=== PATIENT | female | born 1965 | race Hispanic/Latino ===

== ENCOUNTER 2016-11-24 18:22 | Observation (INO) | payer MEDICARE ==
[2016-11-24] MEDS ORDERED: Oxycodone/Acetaminophen 5/325 mg Tab ONE ×2 (19:50→21:48)
[2016-11-24 19:57] LABS: BASO # 0.1 K/uL (0.0-0.2); BASO % 0.8 % (0.0-2.0); EOS # 0.2 K/uL (0.0-0.7); LYMPH # 2.5 K/uL (1.0-4.3); LYMPH % 21.2 % (20.0-40.0); MEAN CORPUSCULAR HEMOGLOBIN 28.9 pg (27.0-31.0); MEAN CORPUSCULAR HGB CONC 33.6 g/dL (33.0-37.0); MEAN PLATELET VOLUME 7.1 fl (7.2-11.7); MONO # 0.7 K/uL (0.0-0.8); MONO % 6.1 % (0.0-10.0); NEUT # 8.2 K/uL (1.8-7.0); NEUT % 69.9 % (50.0-75.0); NRBC % 0.1 % (0.0-0.0); WHITE BLOOD COUNT 11.7 K/uL (4.8-10.8)
[2016-11-24] MEDS: Oxycodone/Acetaminophen 5/325 mg Tab PO ONE ×2 (19:57→21:57)
--- NOTE | 2016-11-24 20:01 | ED PDOC ---
HPI: Chest Pain Time Seen by Provider: 11/24/16 19:12 Chief Complaint (Nursing): Chest Pain Chief Complaint (Provider): Chest Pain History Per: Patient History/Exam Limitations: no limitations Onset/Duration Of Symptoms: Days (since yesterday) Current Symptoms Are (Timing): Still Present Severity: Moderate Quality: Other (left-sided, as if she is being shocked by her pacemaker; non- exertional/non-radiating) Associated Symptoms: denies: Dyspnea, Other (no vomiting) Additional Complaint(s): Carmel Calderón is a 51 year old female, with a past medical history of HTN, COPD and type II diabetes, who presents to the ED on 11/24/16 for the evaluation of moderate, left-sided chest pain that she has experienced since yesterday. Pain is localized around the site of her implanted pacemaker, which patient states had been placed secondary to her "very bad sleep apnea". Patient states that it feels as if the device is "shocking her", and though it has been keeping it up at night it is non-exertional and non-radiating. Denies shortness of breath or vomiting. Of note, patient reports having been recently admitted to [facility] for chest pain, though she had been told upon further observation that nothing was wrong. She also reports that they had only been giving her Tylenol during her hospital stay, but that it had provided no relief as she usually takes Percocet or Dilaudid. PMD: Dr. oPrtillo Past Medical History Reviewed: Historical Data, Nursing Documentation, Vital Signs Vital Signs: Last Vital Signs Temp 97.9 F 11/24/16 22:17 Pulse 77 11/24/16 22:17 Resp 16 11/24/16 22:17 BP 116/74 11/24/16 22:17 Pulse Ox 98 11/24/16 22:16 - Medical History PMH: Arthritis, COPD, Diabetes (type II), Fibromyalgia, Sleep Apnea - Family History Family History: States: Unknown Family Hx - Social History Current smoker - smoking cessation education provided: Yes (heavy smoker (>10 cigarettes/day)) Alcohol: None Drugs: Denies - Allergies Allergies/Adverse Reactions: Allergies Allergy/AdvReac Type Severity Reaction Status Date / Time No Known Allergies Allergy Verified 11/24/16 18:39 Review of Systems ROS Statement: Except As Marked, All Systems Reviewed And Found Negative Cardiovascular: Positive for: Chest Pain (left-sided around site of pacemaker) Respiratory: Negative for: Shortness of Breath Gastrointestinal: Negative for: Vomiting Physical Exam - Reviewed Nursing Documentation Reviewed: Yes Vital Signs Reviewed: Yes - Physical Exam Appears: Positive for: Non-toxic, No Acute Distress (obese, disheveled) Head Exam: Positive for: ATRAUMATIC, NORMOCEPHALIC Skin: Positive for: Normal Color, Warm, Dry Eye Exam: Positive for: Normal appearance, PERRL ENT: Positive for: Normal ENT Inspection Neck: Positive for: Normal, Painless ROM, Supple Cardiovascular/Chest: Positive for: Regular Rate, Rhythm, Other (pacemaker noted within left chest wall, tender to palpation though there is no surrounding swelling/erythema). Negative for: Murmur Respiratory: Positive for: Normal Breath Sounds. Negative for: Respiratory Distress Gastrointestinal/Abdominal: Positive for: Normal Exam, Soft. Negative for: Tenderness Back: Positive for: Normal Inspection Extremity: Positive for: Normal ROM Neurologic/Psych: Positive for: Alert, Oriented - Laboratory Results Result Diagrams: 11/24/16 19:30 11/24/16 19:50 - ECG O2 Sat by Pulse Oximetry: 97 (RA) Pulse Ox Interpretation: Normal - Radiology X-Ray: Interpreted by Me, Viewed By Me X-Ray Interpretation: No Acute Disease Medical Decision Making Medical Decision Makin:12 Initial Impression: chest pain; r/o ACS Initial Plan: * CXR * Labs * BNP * Troponin I * PTT * PT * Percocet 1 tab PO * Reevaluation CXR shows no acute disease as read by me. 21:21 Labs reviewed, troponin and BNP are negative. Discussed case with Dr. Zhong (Medical Service customer operations intern), patient will be hospitalized under his service for chest pain observation. Plan has been discussed with patient, who is in agreement. 21:37 Patient complaining of persistent pain, will order additional Percocet 1 tab PO. Scribe Attestation: Documented by Chelsea Alejandro, acting as a scribe for Nnamdi Cosme MD. Provider Scribe Attestation: All medical record entries made by the Scribe were at my direction and personally dictated by me. I have reviewed the chart and agree that the record accurately reflects my personal performance of the history, physical exam, medical decision making, and the department course for this patient. I have also personally directed, reviewed, and agree with the discharge instructions and disposition. Disposition - Clinical Impression Clinical Impression: Chest pain - Patient ED Disposition Is Patient to be Admitted: Yes - Disposition Disposition Time: 21:21 Condition: STABLE - Pt Status Changed To: Hospital Disposition Of: Observation
[2016-11-24 20:15] LABS: BLOOD UREA NITROGEN 18 mg/dl (7-17); CALCIUM 9.8 mg/dL (8.4-10.2); CARBON DIOXIDE 23 mmol/L (22-30); CHLORIDE 103 mmol/L (98-107); GFR AFRICAN-AMERICAN > 60; GLUCOSE,RANDOM 234 mg/dL (65-105); POTASSIUM 4.4 MMOL/L (3.6-5.0); SODIUM 143 mmol/l (132-148)
[2016-11-24 20:46] LABS: PARTIAL THROMBOPLASTIN TIME 27.8 SECONDS (23.3-32.5)
[2016-11-24] MEDS ORDERED: Oxycodone/Acetaminophen 5/325 mg Tab PO ONE (21:37)
[2016-11-25 00:44] VITALS: RESP 20
[2016-11-25 05:28] VITALS: O2SAT 96
[2016-11-25] MEDS ORDERED: Pneumococcal 23-Valent Vaccine IM ONE (06:00)
[2016-11-25 06:51] LABS: HEMATOCRIT 40.7 % (34.0-47.0); MEAN CELL VOLUME 85.1 fl (81.0-99.0); MEAN CORPUSCULAR HGB CONC 34.1 g/dL (33.0-37.0); RED CELL DISTRIBUTION WIDTH 13.9 % (11.5-14.5); WHITE BLOOD COUNT 9.9 K/uL (4.8-10.8)
[2016-11-25] MEDS ORDERED: Insulin Regular 100 units/ml SC SCH (07:00)
[2016-11-25 07:05] LABS: ALKALINE PHOSPHATASE 123 U/L (38-126); ALT/SGPT 19 U/L (9-52); AST/SGOT 14 U/L (14-36); BILIRUBIN,TOTAL 0.8 mg/dl (0.2-1.3); BLOOD UREA NITROGEN 15 mg/dl (7-17); CALCIUM 9.3 mg/dL (8.4-10.2); CARBON DIOXIDE 24 mmol/L (22-30); CHLORIDE 104 mmol/L (98-107); CHOLESTEROL 209 mg/dL (0-199); GFR AFRICAN-AMERICAN > 60; GLUCOSE,RANDOM 181 mg/dL (65-105); POTASSIUM 3.6 MMOL/L (3.6-5.0); SODIUM 142 mmol/l (132-148); TOTAL PROTEIN 7.3 G/DL (6.3-8.2)
--- NOTE | 2016-11-25 07:10 | CP.PCM.CON ---
History of Present Illness - History of Present Illness History of Present Illness: 51 year old female, with a past medical history of HTN, COPD and type II diabetes, who presents to the ED on 11/24/16 for the evaluation of moderate, left-sided chest pain that she has experienced since yesterday. Pain is at the site of her implanted pacemaker. She claims the pacemaker is "FLIPPING" !! Denies shortness of breath or vomiting. Of note, patient reports having been recently admitted to [facility] for chest pain, though she had been told upon further observation that nothing was wrong. She also reports that they had only been giving her Tylenol during her hospital stay, but that it had provided no relief as she usually takes Percocet or Dilaudid. Requesting Dilaud or Percocet-- ??drug seeking?? Troponin: neg EKG: normal Past Patient History - Past Medical History & Family History Past Medical History?: Yes - Past Social History Smoking Status: Heavy Smoker > 10 Cigarettes Daily - CARDIAC Hx Cardiac Disorders: Yes Hx Hypertension: Yes Hx Pacemaker: Yes - PULMONARY Hx Respiratory Disorders: Yes Hx Chronic Obstructive Pulmonary Disease (COPD): Yes Hx Sleep Apnea: Yes - NEUROLOGICAL Hx Neurological Disorder: No - HEENT Hx HEENT Problems: No - RENAL Hx Chronic Kidney Disease: No - ENDOCRINE/METABOLIC Hx Endocrine Disorders: Yes Hx Diabetes Mellitus Type 2: Yes - HEMATOLOGICAL/ONCOLOGICAL Hx Blood Disorders: No - INTEGUMENTARY Hx Dermatological Problems: No - MUSCULOSKELETAL/RHEUMATOLOGICAL Hx Musculoskeletal Disorders: Yes Hx Arthritis: Yes Hx Falls: No - GASTROINTESTINAL Hx Gastrointestinal Disorders: No - GENITOURINARY/GYNECOLOGICAL Hx Genitourinary Disorders: No - PSYCHIATRIC Hx Psychophysiologic Disorder: No Hx Substance Use: No - SURGICAL HISTORY Hx Surgeries: Yes Hx Section: Yes Hx Tubal Ligation: Yes Other/Comment: Pacemaker, Right carpal tunnel Sx - ANESTHESIA Hx Anesthesia: Yes Hx Anesthesia Reactions: No Hx Malignant Hyperthermia: No Meds Allergies/Adverse Reactions: Allergies Allergy/AdvReac Type Severity Reaction Status Date / Time No Known Allergies Allergy Verified 11/24/16 18:39 - Medications Medications: Current Medications Aspirin (Ecotrin) 81 mg PO DAILY MESFIN Insulin Human Regular (Humulin R) 0 units SC ACCU-CHECK MESFIN PRN Reason: Protocol Last Admin: 11/25/16 06:32 Dose: 1 unit Tramadol HCl (Ultram) 50 mg PO BID PRN PRN Reason: Pain, moderate (4-7) Physical Exam - Cardiovascular Exam Cardiovascular Exam: REGULAR RHYTHM Additional comments: chest wall above the pacemaker is tender to the touch Results - Vital Signs Recent Vital Signs: Last Vital Signs Temp 98 F 11/25/16 05:27 Pulse 95 H 11/25/16 05:27 Resp 20 11/25/16 05:27 BP 148/74 11/25/16 05:27 Pulse Ox 96 11/25/16 05:27 - Labs Result Diagrams: 11/25/16 04:45 11/25/16 04:45 Labs: Laboratory Results - last 24 hr 11/24/16 11/25/16 22:58 05:05 POC Glucose (mg/dL) 231 H 172 H Assessment & Plan - Assessment and Plan (Free Text) Assessment: area above the site of her pacemaker is tender pt can be discharged I have advised her to f/u with her scallop binder who inserted the pacemaker
--- NOTE | 2016-11-25 08:48 | RAD ---
PROCEDURE: CHEST RADIOGRAPH, 1 VIEW. Portable study 19:39. HISTORY: chest pain COMPARISON: None available. FINDINGS: LUNGS: Clear. PLEURA: No pneumothorax or pleural fluid seen. CARDIOVASCULAR: No radiographic findings to suggest acute or significant cardiovascular disease. Position/ configuration of pacemaker device: Satisfactory. OSSEOUS STRUCTURES: No significant abnormalities. VISUALIZED UPPER ABDOMEN: Normal. OTHER FINDINGS: None. IMPRESSION: No active disease.
--- NOTE | 2016-11-25 10:19 | CP.PCM.HP ---
History of Present Illness - History of Present Illness History of Present Illness: 51F admitted overnight and seen this morning with attending. Pt says she came in with a "panic attack" because she's homeless. She said she had some chest pain associated diaphoresis and SOB but denies nausea or radiating into extremity or neck. She reports still being very anxious because she has no place to live and does not think her medications are covered by her insurance. She denies any N/V/diarrhea/fever/chills. Currently denies any suicidal ideation. PMH: DM/HTN/Fibromyalgia/Bipolar (last admission 04/2016)/Anxiety, DVT, Menopause, Renal Abscess PSH: C-sxn x1, b/l tubal ligation, RIGHT carpal tunnel release, AICD (for "not breathing" @ [facility] in [place], [place]) ED COURSE VS: 36.4- 104- 152/99- 16- 97% Trop/BNP-negative CXR- no acute disease Present on Admission - Present on Admission Any Indicators Present on Admission: Yes History of DVT/PE: Yes History of Uncontrolled Diabetes: Yes Review of Systems - Review of Systems Review of Systems: As per HPI Past Patient History - Past Medical History & Family History Past Medical History?: Yes - Past Social History Smoking Status: Heavy Smoker > 10 Cigarettes Daily - CARDIAC Hx Cardiac Disorders: Yes Hx Hypertension: Yes Hx Pacemaker: Yes - PULMONARY Hx Respiratory Disorders: Yes Hx Chronic Obstructive Pulmonary Disease (COPD): Yes Hx Sleep Apnea: Yes - NEUROLOGICAL Hx Neurological Disorder: No - HEENT Hx HEENT Problems: No - RENAL Hx Chronic Kidney Disease: No - ENDOCRINE/METABOLIC Hx Endocrine Disorders: Yes Hx Diabetes Mellitus Type 2: Yes - HEMATOLOGICAL/ONCOLOGICAL Hx Blood Disorders: No - INTEGUMENTARY Hx Dermatological Problems: No - MUSCULOSKELETAL/RHEUMATOLOGICAL Hx Musculoskeletal Disorders: Yes Hx Arthritis: Yes Hx Falls: No - GASTROINTESTINAL Hx Gastrointestinal Disorders: No - GENITOURINARY/GYNECOLOGICAL Hx Genitourinary Disorders: No - PSYCHIATRIC Hx Psychophysiologic Disorder: No Hx Substance Use: No - SURGICAL HISTORY Hx Surgeries: Yes Hx Section: Yes Hx Tubal Ligation: Yes Other/Comment: Pacemaker, Right carpal tunnel Sx - ANESTHESIA Hx Anesthesia: Yes Hx Anesthesia Reactions: No Hx Malignant Hyperthermia: No Meds Home Medications: Home Medication List Medication Instructions Recorded Confirmed Type Lisinopril [Prinivil] 10 mg PO DAILY #30 tab 04/19/17 Rx metFORMIN [glucOPHAGE] 500 mg PO BID #60 tab 11/25/16 Rx Allergies/Adverse Reactions: Allergies Allergy/AdvReac Type Severity Reaction Status Date / Time No Known Allergies Allergy Verified 11/24/16 18:39 Physical Exam - Constitutional Appears: Well, Non-toxic, No Acute Distress - Head Exam Head Exam: ATRAUMATIC, NORMAL INSPECTION - Eye Exam Eye Exam: EOMI, Normal appearance - ENT Exam ENT Exam: Mucous Membranes Moist, Normal Exam - Respiratory Exam Respiratory Exam: Clear to Auscultation Bilateral, NORMAL BREATHING PATTERN. absent: Rales, Wheezes - Cardiovascular Exam Cardiovascular Exam: REGULAR RHYTHM (AICD pocket non-erythematous, but ttp). absent: JVD - GI/Abdominal Exam GI & Abdominal Exam: Normal Bowel Sounds, Soft (obese). absent: Tenderness - Extremities Exam Extremities exam: Positive for: normal capillary refill, pedal pulses present. Negative for: pedal edema - Neurological Exam Neurological exam: Alert, Oriented x3 - Psychiatric Exam Psychiatric exam: Anxious, Normal Mood - Skin Skin Exam: Normal Color, Warm Results - Vital Signs Recent Vital Signs: Last Vital Signs Temp 36.6 C 11/25/16 08:31 Pulse 81 11/25/16 08:31 Resp 20 11/25/16 08:31 BP 139/90 11/25/16 08:31 Pulse Ox 96 11/25/16 08:31 - Labs Result Diagrams: 11/25/16 04:45 11/25/16 04:45 Labs: Laboratory Results - last 24 hr 11/24/16 11/25/16 11/25/16 22:58 04:45 05:05 WBC 9.9 RBC 4.78 Hgb 13.9 Hct 40.7 MCV 85.1 MCH 29.0 MCHC 34.1 RDW 13.9 Plt Count 293 Sodium 142 Potassium 3.6 Chloride 104 Carbon Dioxide 24 Anion Gap 18 BUN 15 Creatinine 0.5 L Est GFR ( Amer) > 60 Est GFR (Non-Af Amer) > 60 POC Glucose (mg/dL) 231 H 172 H Random Glucose 181 H Calcium 9.3 Total Bilirubin 0.8 AST 14 ALT 19 Alkaline Phosphatase 123 Troponin I < 0.0120 Total Protein 7.3 Albumin 3.6 Globulin 3.7 Albumin/Globulin Ratio 1.0 Triglycerides 162 H Cholesterol 209 H LDL Cholesterol Direct 159 H HDL Cholesterol 32 Assessment & Plan - Assessment and Plan (Free Text) Assessment: 51F p/w multiple co-morbidities, off of her medication, and chest pain due to anxiety/panic attack. Plan: - Admit for obs - DM: Metformin 500mg, BIDWM - HTN: Lisinopril 10mg, PO, Daily - CAD: Aspiring 81mg, PO, Daily - f/u ACS labs - d/c if workup negative and discussed with Dr Leonardo
[2016-11-25 13:14] VITALS: BP 159/94; PULSE 97; TEMP 97.6
--- NOTE | 2016-11-25 13:39 | CP.PCM.DIS ---
Provider - Provider Date of Admission: 11/24/16 21:21 Attending physician: Luis Zhong MD Primary care physician: Rae Portillo MD Time Spent in preparation of Discharge (in minutes): 30 Diagnosis - Discharge Diagnosis (1) Chest pain Status: Acute Comment: Troponins negative x3, symptoms most c/w anxiety-related. Evaluated by Dr Leonardo who has cleared her for discharge to follow up with cradiologist that placed AICD. (2) Diabetes Status: Acute Comment: Not on medications, will discharge on Metformin. (3) Hypertension Status: Acute Comment: Not on medications, will discharge on ACEI given co-existing DM. Hospital Course - Lab Results Lab Results: Most Recent Lab Values WBC 9.9 K/uL (4.8-10.8) 11/25/16 04:45 RBC 4.78 Mil/uL (3.80-5.20) 11/25/16 04:45 Hgb 13.9 g/dL (12.0-16.0) 11/25/16 04:45 Hct 40.7 % (34.0-47.0) 11/25/16 04:45 MCV 85.1 fl (81.0-99.0) 11/25/16 04:45 MCH 29.0 pg (27.0-31.0) 11/25/16 04:45 MCHC 34.1 g/dL (33.0-37.0) 11/25/16 04:45 RDW 13.9 % (11.5-14.5) 11/25/16 04:45 Plt Count 293 K/uL (130-400) 11/25/16 04:45 MPV 7.1 fl (7.2-11.7) L 11/24/16 19:30 Neut % (Auto) 69.9 % (50.0-75.0) 11/24/16 19:30 Lymph % (Auto) 21.2 % (20.0-40.0) 11/24/16 19:30 Stark % (Auto) 6.1 % (0.0-10.0) 11/24/16 19:30 Eos % (Auto) 2.0 % (0.0-4.0) 11/24/16 19:30 Baso % (Auto) 0.8 % (0.0-2.0) 11/24/16 19:30 Neut # 8.2 K/uL (1.8-7.0) H 11/24/16 19:30 Lymph # 2.5 K/uL (1.0-4.3) 11/24/16 19:30 Stark # 0.7 K/uL (0.0-0.8) 11/24/16 19:30 Eos # 0.2 K/uL (0.0-0.7) 11/24/16 19:30 Baso # 0.1 K/uL (0.0-0.2) 11/24/16 19:30 PT 10.7 SECONDS (9.6-11.2) 11/24/16 19:30 INR 1.03 (0.92-1.08) 11/24/16 19:30 APTT 27.8 SECONDS (23.3-32.5) 11/24/16 19:30 Sodium 142 mmol/l (132-148) 11/25/16 04:45 Potassium 3.6 MMOL/L (3.6-5.0) 11/25/16 04:45 Chloride 104 mmol/L (98-107) 11/25/16 04:45 Carbon Dioxide 24 mmol/L (22-30) 11/25/16 04:45 Anion Gap 18 (10-20) 11/25/16 04:45 BUN 15 mg/dl (7-17) 11/25/16 04:45 Creatinine 0.5 mg/dL (0.7-1.2) L 11/25/16 04:45 Est GFR ( Amer) > 60 11/25/16 04:45 Est GFR (Non-Af Amer) > 60 11/25/16 04:45 POC Glucose (mg/dL) 270 mg/dL (65-110) H 11/25/16 11:01 Random Glucose 181 mg/dL (65-105) H 11/25/16 04:45 Calcium 9.3 mg/dL (8.4-10.2) 11/25/16 04:45 Total Bilirubin 0.8 mg/dl (0.2-1.3) 11/25/16 04:45 AST 14 U/L (14-36) 11/25/16 04:45 ALT 19 U/L (9-52) 11/25/16 04:45 Alkaline Phosphatase 123 U/L (38-126) 11/25/16 04:45 Troponin I < 0.0120 ng/mL (0.00-0.120) 11/25/16 12:28 NT-Pro-B Natriuret Pep 38.6 pg/ml (0-900) 11/24/16 19:50 Total Protein 7.3 G/DL (6.3-8.2) 11/25/16 04:45 Albumin 3.6 g/dL (3.5-5.0) 11/25/16 04:45 Globulin 3.7 gm/dL (2.2-3.9) 11/25/16 04:45 Albumin/Globulin Ratio 1.0 (1.0-2.1) 11/25/16 04:45 Triglycerides 162 mg/DL (0-149) H 11/25/16 04:45 Cholesterol 209 mg/dL (0-199) H 11/25/16 04:45 LDL Cholesterol Direct 159 mg/dL (0-129) H 11/25/16 04:45 HDL Cholesterol 32 MG/DL (30-70) 11/25/16 04:45 - Hospital Course Hospital Course: 51F admitted for evaluation of chest pain that she herself described as "panic attack" from being homeless. Subsequent ACS rulled out with no acute changes on EKG and Troponins negative x3. Dr Leonardo (cardiology) also evaluated and cleared patient for discharge and close follow up with dynamite packing machine feeder that placed AICD. At this time she is stable for discharge on medications as prescribed and encouraged to follow up with her PMD. Discharge Exam - Head Exam Head Exam: ATRAUMATIC, NORMOCEPHALIC - Eye Exam Eye Exam: EOMI, Normal appearance - ENT Exam ENT Exam: Mucous Membranes Moist, Normal Exam - Respiratory Exam Respiratory Exam: Clear to PA & Lateral, NORMAL BREATHING PATTERN. absent: Rales, Wheezes - Cardiovascular Exam Cardiovascular Exam: REGULAR RHYTHM. absent: JVD - GI/Abdominal Exam GI & Abdominal Exam: Normal Bowel Sounds, Soft. absent: Tenderness - Extremities Exam Extremities exam: normal capillary refill, pedal pulses present - Neurological Exam Neurological exam: Alert, Oriented x3 - Psychiatric Exam Psychiatric exam: Anxious, Normal Mood - Skin Skin Exam: Normal Color, Warm Discharge Plan - Discharge Medications Prescriptions: Lisinopril [Prinivil] 10 mg PO DAILY #30 tab metFORMIN [glucOPHAGE] 500 mg PO BID #60 tab - Follow Up Plan Condition: STABLE Disposition: HOME/ ROUTINE Patient education suggested?: Yes Instructions: Diabetes Mellitus Type 2 in Adults (DC), Hypertension (DC) Referrals: Rae Portillo MD [Primary Care Provider] -
== END 2016-11-25 14:30 | disposition home or self-care (01) ==
LOC: H.ER 18:22 → H.ERHOLD 21:21 → H.TEL 22:48
PROVIDERS: ADMIT Family Medicine; ATTEND Family Medicine
DX: F41.0 Panic disorder [episodic paroxysmal anxiety] (principal); Z59.0 Homelessness; E11.9 Type 2 diabetes mellitus without complications; I10 Essential (primary) hypertension; M79.7 Fibromyalgia; Z95.810 Presence of automatic (implantable) cardiac defibrillator; Z79.84 Long term (current) use of oral hypoglycemic drugs; F17.210 Nicotine dependence, cigarettes, uncomplicated; J44.9 Chronic obstructive pulmonary disease, unspecified; G47.30 Sleep apnea, unspecified; Z23 Encounter for immunization
CPT/HCPCS: 36415; 71010; 80048; 80053; 80061; 82948; 83036; 83880; 84484; 85025; 85027; 85610; 85730; 90732; 99285; G0009; G0378